=== PATIENT | male | born 1960 | race Caucasian/White ===

== ENCOUNTER 2019-04-20 09:27 | Observation (INO) | payer MEDICARE, MEDICAID ==
--- OUTSIDE RECORDS SUMMARY | 2019-04-20 09:43 | XMS REPORT | Continuity of Care Document ---
:1960 External Reference #:[id number] Author Name Jose Cruz Hernandez DO, MPH Address [address] [place] [address], [address] [place] [address] Care Team Providers Name Role Phone Pavithra Galvin M.D. 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 Medicine Problems Active Problems Provider Date Type 2 diabetes mellitus Jose Cruz Hernandez DO, MPH Onset: 10/18/2014 Social History Type Date Description Comments Sex Unknown Cigarette Use Former Cigarette Smoker 3 Packs Daily ETOH Use Rarely consumes alcohol Tobacco Use Start: Unknown End: Unknown Patient is a former smoker Smoking Status Reviewed: 03/02/19 Patient is a former smoker Allergies, Adverse Reactions, Alerts Active Allergies Reaction Severity Comments Date Penicillin 10/18/2014 Benadryl 10/18/2014 Contrast Dye 10/18/2014 Adhesives 10/18/2014 Ultram 10/18/2014 Keflex 10/18/2014 Amoxicillin 10/18/2014 Ampicillin 10/18/2014 Flexeril 10/18/2014 Medications Active Medications SIG Qnty Indications Ordering Date Provider Dilaudid si every 6 to 120tabs Jose Cruz Hernandez, 03/05/2018 2mg Tablets 8 hours as DO, MPH directed chronic pain patient Morphine Sulfate ER si by mouth 60tabs Jose Cruz Hernandez, 10/27/2014 15mg every 12 hours DO, MPH Tablets ER as directed chronic pain patient Anoro Ellipta Unknown 62.5-25mcg/Inh Aerosol Spiriva Respimat 2 puffs daily Unknown 2.5mcg/Act Aerosol Coq10 Unknown 200mg Capsules Alpha Lipoic Acid take one capsule Unknown 200mg by mouth every 8 Capsules hours as directed chronic pain. Rosuvastatin Calcium qhs Unknown 5mg Tablets Spironolactone 1 By Mouth Daily Unknown 25mg Tablets Magnesium Oxide 1 by mouth three Unknown 400(240Mg) times a day mg Tablets Levocetirizine sig: take 1 by Unknown Dihydrochloride mouth daily 5mg Tablets Ibuprofen si by mouth Unknown 600mg Tablets twice a day Ramipril si po qhs Unknown 2.5mg Capsules Repatha every 2 weeks Unknown 140mg/ml Soln Prefill Syringe Toprol XL 2 PO qam And1 PO 90tabs Unknown 50mg Tablets ER PM 24HR Repaglinide tid Unknown 2mg Tablets Plavix 1 by mouth at Unknown 75mg Tablets night Norvasc 1 by mouth bid Unknown 5mg Tablets Nitrostat prn Unknown 0.4mg Tablets Sub Furosemide 1 by mouth daily Unknown 40mg Tablets Lantus Solostar 80 units in the Unknown 60Units morning Solution Pen-Inject Glucophage 1 bid Unknown 1000mg Tablets Flonase Allergy Relief Unknown 50mcg/Act Suspension Daily Vitamin 1 by mouth every Unknown Tablets day Carbamazepine ER 1 po tid Unknown 400mg Tablets ER 12HR Aspirin si by mouth Unknown 325mg Tablets every day as directed pooja test test only Doxylamine Succinate 1 po qhs Unknown 25mg Albuterol Inhalation two puffs by Unknown mouth every 4-6 90mcg/Dose Aerosol hours for shortness of breath Immunizations Description No Information Available Vital Signs Date Vital Result Comment 03/02/2019 9:47am BP Systolic 142 mmHg BP Diastolic 86 mmHg Heart Rate 84 /min Respiratory Rate 20 /min Height 70 inches 5'10" Weight 262.00 lb Pain Level 7 Pain at this time. Pain Level With Medicine 6 on average with meds Pain Level Without Medicine 9 without meds BMI (Body Mass Index) 37.6 kg/m2 01/31/2019 9:53am Respiratory Rate 20 /min Height 70 inches 5'10" Weight 262.00 lb Pain Level 7 Pain at this time. Pain Level With Medicine 6 on average with meds Pain Level Without Medicine 9 without meds BMI (Body Mass Index) 37.6 kg/m2 Results Description No Information Available Procedures Date Code Description Status 01/31/2019 70967 Therapeutic, Prophylactic Or Diagnostic Injection Subq/Im Completed 12/31/2018 74186 Therapeutic, Prophylactic Or Diagnostic Injection Subq/Im Completed 12/01/2018 05854 Therapeutic, Prophylactic Or Diagnostic Injection Subq/Im Completed 11/01/2018 51971 Therapeutic, Prophylactic Or Diagnostic Injection Subq/Im Completed 09/30/2018 53135 Therapeutic, Prophylactic Or Diagnostic Injection Subq/Im Completed 09/02/2018 50865 Therapeutic, Prophylactic Or Diagnostic Injection Subq/Im Completed Medical Devices Description No Information Available Encounters Type Date Location Provider Dx Diagnosis Office Visit 01/31/2019 Main Office as Of Jose Cruz Hernandez DO G89.29 Other chronic pain 10:00a 06/18/13 MPH M54.5 Low back pain 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, cervical region Z79.4 residential (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 R53.83 Other fatigue 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 Office Visit 12/31/2018 9:30a Main Office as Jose Cruz Hernandez G89.29 Other chronic Of 06/18/13 DO, MPH pain 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, cervical region M54.5 Low back pain R53.83 Other fatigue Z79.4 residential (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 Office Visit 12/01/2018 9:45a Main Office as Jose Cruz Hernandez G89.29 Other chronic Of 06/18/13 DO, MPH pain M54.5 Low back pain 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, cervical region R53.83 Other fatigue 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 Office Visit 11/01/2018 9:30a Main Office as Jose Cruz Hernandez G89.29 Other chronic Of 06/18/13 DO, MPH pain 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, cervical region M54.5 Low back pain I51.9 Heart disease, unspecified I10 Essential (primary) hypertension E11.8 Type 2 diabetes mellitus with unspecified complications Z79.4 residential (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 G40.89 Other seizures R53.83 Other fatigue 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 Office Visit 09/30/2018 10:30a Main Office as Hernandez, Jose Cruz, G89.29 Other chronic Of 06/18/13 DO, MPH pain M54.5 Low back pain 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, cervical region R53.83 Other fatigue Z79.891 residential (current) use of opiate analgesic Office Visit 09/02/2018 9:30a Main Office as Hernandez, Jose Cruz, G89.29 Other chronic Of 06/18/13 DO, MPH pain M54.5 Low back pain 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, 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 R53.83 Other fatigue 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 Assessments Date Code Description Provider 03/02/2019 G89.29 Other chronic pain Hernandez, Jose Cruz, DO, MPH 03/02/2019 M54.5 Low back pain Hernandez, Jose Cruz, DO, MPH 03/02/2019 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, cervical region Hernandez, Jose Cruz, DO, MPH 03/02/2019 R53.83 Other fatigue Hernandez, Jose Cruz, DO, MPH 03/02/2019 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 Hernandez, Jose Cruz, DO , MPH nervous system 03/02/2019 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 Hernandez, Jose Cruz , DO, MPH 01/31/2019 G89.29 Other chronic pain Hernandez, Jose Cruz, DO, MPH 01/31/2019 M54.5 Low back pain Hernandez, Jose Cruz, DO, MPH 01/31/2019 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, cervical region Hernandez, Jose Cruz, DO, MPH 01/31/2019 Z79.4 equipment 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 (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 Hernandez, Jose Cruz, DO, MPH 01/31/2019 R53.83 Other fatigue Hernandez, Jose Cruz, DO, MPH 01/31/2019 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 Hernandez, Jose Cruz , DO, MPH 12/31/2018 G89.29 Other chronic pain Hernandez, Jose Cruz, DO, MPH 12/31/2018 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, cervical region Hernandez, Jose Cruz, DO, MPH 12/31/2018 M54.5 Low back pain Hernandez, Jose Cruz, DO, MPH 12/31/2018 R53.83 Other fatigue Hernandez, Jose Cruz, DO, MPH 12/31/2018 Z79.4 residential (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 Hernandez, Jose Cruz, DO, MPH 12/01/2018 G89.29 Other chronic pain Hernandez, Jose Cruz, DO, MPH 12/01/2018 M54.5 Low back pain Hernandez, Jose Cruz, DO, MPH 12/01/2018 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, cervical region Hernandez, Jose Cruz, DO, MPH 12/01/2018 R53.83 Other fatigue Hernandez, Jose Cruz, DO, MPH 12/01/2018 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 Hernandez, Jose Cruz , DO, MPH 11/01/2018 G89.29 Other chronic pain Hernandez, Jose Cruz, DO, MPH 11/01/2018 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, cervical region Hernandez, Jose Cruz, DO, MPH 11/01/2018 M54.5 Low back pain Hernandez, Jose Cruz, DO, MPH 11/01/2018 I51.9 Heart disease, unspecified Hernandez, Jose Cruz, DO, MPH 11/01/2018 I10 Essential (primary) hypertension Hernandez, Jose Cruz, DO, MPH 11/01/2018 E11.8 Type 2 diabetes mellitus with unspecified Hernandez, Jose Cruz, DO , MPH complications 11/01/2018 Z79.4 residential (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 Hernandez, Jose Cruz, DO, MPH 11/01/2018 G40.89 Other seizures Hernandez, Jose Cruz, DO, MPH 11/01/2018 R53.83 Other fatigue Hernandez, Jose Cruz, DO, MPH 11/01/2018 Z79.891 residential (current) use of opiate analgesic Hernandez, Jose Cruz , DO, MPH 09/30/2018 G89.29 Other chronic pain Hernandez, Jose Cruz, DO, MPH 09/30/2018 M54.5 Low back pain Hernandez, Jose Cruz, DO, MPH 09/30/2018 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, cervical region Jose Cruz Hernandez DO, MPH 09/30/2018 R53.83 Other fatigue Jose Cruz Hernandez DO, MPH 09/30/2018 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 Jose Cruz Hernandez DO, MPH 09/02/2018 G89.29 Other chronic pain Jose Cruz Hernandez DO, MPH 09/02/2018 M54.5 Low back pain Jose Cruz Hrenandez DO, MPH 09/02/2018 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 Symptoms and complaints discussed and reviewed today. No significant changes in physical findings. Continue current medical pain management.M54.5 Low back painComments:Chronic. Symptoms and complaints discussed and reviewed today.No changes in physical findings. Patient is stable and comfortable when current medical therapy is rendered.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 , cervical regionComments:Chronic. Symptoms and complaints discussed and reviewed today. No significant changes in physical findings. Continue current medical pain management.R53.83 Other fatigueComments:Symptoms and complaints discussed and reviewed today. No significant changes in physical findings. Continue current medical pain management. B12 injection administered after patient evaluated. 1ml IM for fatigue. (See Consent for injection-B12 document for lot number and expiration date.)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 nervous systemNew Orders:Sudomotor Test, Ordered: 03/02/19Comments: Sudomotor testing ordered to determine the effect, if any, of chronic illness and pain on small nerve fibers and/or autonomic nervous system function. Future testing will help to monitor the effects ofchronic illness,pain and subsequent treatments on the autonomic nervous system. If proper diagnosis and monitoring of ANS and/or small pain fiber problems is not appropriately addressed, adequate pain management may not be achieved.Z79.891 residential (current) use of opiate analgesicNew Labs:Urine Drug Screen, Ordered: 03/02/19Comments:Urine drug screen sample taken today to monitor opiate use and to monitor use of illicit substances.Will discuss results at next appointment.The following tests were ordered:6 AM, AMPH, ISAEL, DAWIT, BUP, CARIS, COCM, COT, ETG, FENT, MCSHSG, OPI, OXY, PCP, TAPEN, XTSY, ZOLP. A urine drug test (UDT) was ordered for this patient and collected on site today. Creatinine has been ordered as well for specimen validity, not for kidney function. Preliminary UDT results are not final and should not be used to determine patient care or plan of treatment. Initially a qualitative immunoassay screen will be done. Any inconsistent or positive findings will be further tested with a more comprehensive quantitative confirmation LCMS study. It is part of the treatment process of prescribing controlled substances and is considered standard of care.AllComments:Continue current medical pain management; injection therapy, osteopathic manipulation, PT / modalities, and consults as needed to manage chronic pain.Non - opioid pain management discussed and optionsdiscussed.Side effects discussed; anticipatory guidance given. Patient clearly understand and agree with all medical treatments and suggestions. All medicines prescribed are adequate and appropriate for this patient's complaint of pain, medical history, physical, and personal goals.Goals of Treatment are to provide adequate and appropriate multidisciplinary medical pain management to increase/ maintain patient's quality of life and functionality while maintaining satisfactory side effect profile andminimizing fpc end-organ damage. Importance of regular nutrition throughout the day discussed.Activity as toleratedContinue with PCP Functional Status Description No Information Available Mental Status Description No Information Available Referrals Description No Information Available
--- OUTSIDE RECORDS SUMMARY | 2019-04-20 09:43 | XMS REPORT | Continuity of Care Document ---
:1960 External Reference #:[id number] Author Name Jose Cruz Hernandez DO, MPH Address [address] [place] [address], [address] [place] [address] Care Team Providers Name Role Phone Pavithra Galvin M.D. - Internal Care Team Information T[employer] [phone] Medicine Problems Active Problems Provider Date Type 2 diabetes mellitus Jose Cruz Hernandez DO, MPH Onset: 10/18/2014 Social History Type Date Description Comments Sex Unknown Cigarette Use Former Cigarette Smoker 3 Packs Daily ETOH Use Rarely consumes alcohol Tobacco Use Start: Unknown End: Unknown Patient is a former smoker Smoking Status Reviewed: 04/01/19 Patient is a former smoker Allergies, Adverse [...] Available Vital Signs Date Vital Result Comment 04/01/2019 9:49am BP Systolic 140 mmHg BP Diastolic 84 mmHg Heart Rate 88 /min Respiratory Rate 20 /min Height 70 inches 5'10" Weight 260.00 lb Pain Level 6 Pain at this time. Pain Level With Medicine 6 on average with meds Pain Level Without Medicine 9 without meds BMI (Body Mass Index) 37.3 kg/m2 03/02/2019 9:47am BP Systolic 142 mmHg BP [...] Information Available Procedures Date Code Description Status 03/02/2019 90523 Therapeutic, Prophylactic Or Diagnostic Injection Subq/Im Completed 03/02/2019 14288 Test Autonomic Nervous System, Sudomotor Completed 03/02/2019 36714 Test Autonomic Nervous System, Cardiovagal Innervation Completed 01/31/2019 75811 Therapeutic, Prophylactic Or Diagnostic Injection Subq/Im Completed 12/31/2018 76217 Therapeutic, Prophylactic Or Diagnostic Injection Subq/Im Completed 12/01/2018 90663 Therapeutic, Prophylactic Or Diagnostic Injection Subq/Im Completed 11/01/2018 64453 Therapeutic, Prophylactic Or Diagnostic Injection Subq/Im Completed Medical Devices Description No Information Available Encounters Type Date Location Provider Dx Diagnosis Office Visit 03/02/2019 Main Office as Of Jose Cruz Hernandez DO G89.29 Other chronic pain 10:00a 06/18/13 MPH M54.5 Low back pain 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, cervical region R53.83 Other fatigue 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 nervous system 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 Office Visit 01/31/2019 10:00a Main Office as Jose Cruz Hernandez G89.29 Other chronic Of 06/18/13 DO, MPH pain M54.5 Low back pain 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, cervical region Z79.4 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 R53.83 Other fatigue 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 Office Visit 12/31/2018 9:30a Main Office as Jose Cruz Hernandez G89.29 Other chronic Of 06/18/13 DO, MPH pain 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, cervical region M54.5 Low back pain R53.83 Other fatigue Z79.4 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 Office Visit 12/01/2018 9:45a Main Office as Jose Cruz Hernandez G89.29 Other chronic Of 06/18/13 DO, MPH pain M54.5 Low back pain 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, cervical region R53.83 Other fatigue Z79.891 [facility] (current) use of opiate analgesic Office Visit 11/01/2018 9:30a Main Office as HernandezJose Cruz lee, G89.29 Other chronic Of 06/18/13 DO, MPH pain 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, cervical region M54.5 Low back pain I51.9 Heart disease, unspecified I10 Essential (primary) hypertension E11.8 Type 2 diabetes mellitus with unspecified complications Z79.4 [facility] (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 G40.89 Other seizures R53.83 Other fatigue Z79.891 [facility] (current) use of opiate analgesic Assessments Date Code Description Provider 04/01/2019 G89.29 Other chronic pain Hernandez, Jose Cruz, DO, MPH 04/01/2019 M54.5 Low back pain Hernandez, Jose Cruz, DO, MPH 04/01/2019 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, cervical region Hernandez, Jose Cruz, DO, MPH 04/01/2019 R53.83 Other fatigue Hernandez, Jose Cruz, DO, MPH 04/01/2019 Z79.891 [facility] (current) use of opiate analgesic Hernandez, Jose Cruz , DO, MPH 04/01/2019 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 Hernandez, Jose Cruz, DO , MPH nervous system 03/02/2019 G89.29 Other chronic pain Hernandez, Jose Cruz, DO, MPH 03/02/2019 M54.5 Low back pain Hernandez, Jose Cruz, DO, MPH 03/02/2019 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, cervical region Hernandez, Jose Cruz, DO, MPH 03/02/2019 R53.83 Other fatigue Hernandez, Jose Cruz, DO, MPH 03/02/2019 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 Hernandez, Jose Cruz, DO , MPH nervous system 03/02/2019 Z79.891 [facility] (current) use of opiate analgesic Hernandez, Jose Cruz , DO, MPH 01/31/2019 G89.29 Other chronic pain Hernandez, Jose Cruz, DO, MPH 01/31/2019 M54.5 Low back pain Hernandez, Jose Cruz, DO, MPH 01/31/2019 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, cervical region Hernandez, Jose Cruz, DO, MPH 01/31/2019 Z79.4 [facility] (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 Hernandez, Jose Cruz, DO, MPH 01/31/2019 R53.83 Other fatigue Hernandez, Jose Cruz, DO, MPH 01/31/2019 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 Hernandez, Jose Cruz , DO, MPH 12/31/2018 G89.29 Other chronic pain Hernandez, Jose Cruz, DO, MPH 12/31/2018 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, cervical region Hernandez, Jose Cruz, DO, MPH 12/31/2018 M54.5 Low back pain Hernandez, Jose Cruz, DO, MPH 12/31/2018 R53.83 Other fatigue Hernandez, Jose Cruz, DO, MPH 12/31/2018 Z79.4 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 Hernandez, Jose Cruz, DO, MPH 12/01/2018 G89.29 Other chronic pain Hernandez, Jose Cruz, DO, MPH 12/01/2018 M54.5 Low back pain Hernandez, Jose Cruz, DO, MPH 12/01/2018 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, cervical region Hernandez, Jose Cruz, DO, MPH 12/01/2018 R53.83 Other fatigue Hernandez, Jose Cruz, DO, MPH 12/01/2018 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 Hernandez, Jose [...] Cruz, DO , MPH complications 11/01/2018 Z79.4 [facility] (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 Hernandez, Jose Cruz, DO, MPH 11/01/2018 G40.89 Other seizures Jose Cruz Hernandez DO MPH 11/01/2018 R53.83 Other fatigue Jose Cruz Hernandez DO MPH 11/01/2018 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 Jose Cruz Hernandez DO MPH Plan of Treatment Future Appointment(s):05/02/2019 9:45 am - Jose Cruz Hernandez DO, MPH at Main Office as Of 06/18/1410 - Jose Cruz Hernandez DO, MPHG89.29 Other [...] injection-B12 document for lot number and expiration date.)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New Labs:Urine Drug Screen, Ordered: 04/01/19Comments:Urine drug screen sample taken today to monitor opiate use and to monitor use of illicit substances.Will discuss results at next appointment.The following tests were ordered:6 AM, AMPH, ISAEL, DAWIT, BUP, CARIS, COCM, ETG, FENT, MCSHSG, OPI, OXY, PCP, TAPEN, XTSY, ZOLP. A urine drug test (UDT) was ordered for this patient and collected on site today. Creatinine has been ordered as well for specimen validity, not for kidney function. Preliminary UDT results are not final and should not be used to determine patient care or plan of treatment. Initially a qualitative immunoassay screen will bedone. Any inconsistent or positive findings will be further tested with a more comprehensive quantitative confirmation LCMS study. It is part of the treatment process of prescribing controlled substances and is considered standard of care.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 nervous systemComments:Sudomotor test report reviewed with the patient today. The test was Positive for possible autonomic dysfunction at this time. Will follow effects of pain and current medical treatment. Future testing will help to monitor the effects of chronic illness, pain and subsequent treatment on the autonomic nervous system. May retest in 3- 6 monthsAlpha lipoic acid 100 - 200 mg tid. suggested to patient. Thishas been shown to help with the neuropathic component of pain and autonomic dysfunction.AllComments:Continue current medical pain management; injection therapy, osteopathic [...] while maintaining satisfactory side effect profile andminimizing halfway end-organ damage. Importance of regular nutrition throughout the day discussed.Activity as toleratedContinue with PCP Functional Status Description No Information Available Mental Status Description No Information Available Referrals Description No Information Available
--- NOTE | 2019-04-20 10:17 | ED ---
Shortness of Breath - HPI Summary HPI Summary: The patient is a 58 y/o M presenting to [facility] with a chief complaint of shortness of breath for the last week. He reports that he called his PCP Dr. Galvin, and the office told him that if he developed a fever, he should call back. He developed a fever last night, so he called the office and was told to go to urgent care, but he came here. He endorses a productive cough, chest congestion, decreased appetite, and weakness. He denies edema. Currently, he rates his symptoms 3/10 in severity. PMHx: diabetes, angina, CAD, DVT, HLD, HTN , VT, syncope, CABG, COPD, PNA, headache/migraines, seizures, TIA. Former smoker , rare EtOH, no substance use. Medications reviewed. Allergies noted. - History of Current Complaint Chief Complaint: EDShortnessOfBreath Time Seen by Provider: 04/20/19 10:10 Hx Obtained From: Patient Onset/Duration: Lasting Days - one week, Still Present Current Severity: Moderate Dyspnea At: Rest Aggravating Factors: Nothing Alleviating Factors: Nothing Associated Signs & Symptoms: Cough (Productive), Fever - Allergy/Home Medications Allergies/Adverse Reactions: Allergies Allergy/AdvReac Type Severity Reaction Status Date / Time diphenhydramine Allergy Severe Anaphylatic Verified 01/10/19 10:38 Shock Iodinated Contrast Media Allergy Severe Anaphylatic Verified 01/10/19 10:38 [Iodinated Contrast- Oral Shock and IV Dye] Penicillins Allergy Severe Anaphylatic Verified 01/10/19 10:38 Shock cyclobenzaprine Allergy Intermediate Rash Verified 01/10/19 10:38 tramadol Allergy Intermediate Rash Verified 01/10/19 10:38 cephalexin Allergy Unknown Unknown Verified 01/10/19 10:38 Reaction Details Adhesive Tape Allergy Blisters Verified 01/10/19 10:38 Home Medications: Home Medications Albuterol HFA INHALER* [Ventolin HFA Inhaler*] 1 - 2 puff INH Q4H PRN 04/20/19 [ History Confirmed 04/20/19] Budesonide/Formote 80/4.5(NF) [Symbicort 80/4.5 (NF)] 2 puff INH DAILY 04/20/19 [History Confirmed 04/20/19] Ipratropium 0.5MG/2.5ML NEB* [Atrovent 0.5 MG NEB.AGUSTO*] 0.5 mg INH BID PRN 04/20 [History Confirmed 04/20/19] Metoprolol Succinate XL TAB* [Toprol XL TAB*] 25 mg PO QPM 04/20/19 [History Confirmed 04/20/19] PMH/Surg Hx/FS Hx/Imm Hx Endocrine/Hematology History: Reports: Hx Anticoagulant Therapy - plavix, Hx Diabetes - type II insulin dependent Cardiovascular History: Reports: Hx Angina, Hx Coronary Artery Disease, Hx Deep Vein Thrombosis, Hx Hypercholesterolemia, Hx Hypertension, Hx Myocardial Infarction, Hx Syncope Denies: Hx Congestive Heart Failure, Hx Pacemaker/ICD, Hx Valvular Heart Disease Comment Only: Other Cardiovascular Problems/Disorders - ANGIOPLASTIES X 19 Respiratory History: Reports: Hx Chronic Obstructive Pulmonary Disease (COPD), Hx Pneumonia, Hx Seasonal Allergies Denies: Hx Asthma Comment Only: Other Respiratory Problems/Disorders - COPD GI History: Reports: Hx Ulcer, Other GI Disorders Musculoskeletal History: Reports: Hx Arthritis, Hx Back Problems, Other Musculoskeletal History - BACK SURGERIES, hip replacement, c-spine surgery Denies: Hx Rheumatoid Arthritis, Hx Gout, Hx Osteoporosis Sensory History: Reports: Hx Contacts or Glasses Denies: Hx Hearing Aid Opthamlomology History: Reports: Hx Contacts or Glasses Neurological History: Reports: Hx Headaches, Hx Migraine, Hx Nerve Disease, Hx Seizures, Hx Transient Ischemic Attacks (TIA), Other Neuro Impairments/ Disorders - SEIZURES HX R/T PESTICIDE TOXIN Psychiatric History: Denies: Hx Panic Disorder - Surgical History Surgical History: Yes Surgery Procedure, Year, and Place: CABG x 4 Vessels. Anterior neck diskectomy x 2. Septoplasty (Nose opened up to breathe better) 1978. Right Hip replacement approx 10 years ago. (16) ANGIOPLASTIES AND STENTS. Bilateral inguinal hernia repair as a baby. Make Meaningtronic monitor inserted and removed to monitor heart 3 or 4 years ago. Hx Anesthesia Reactions: No - Immunization History Date of Tetanus Vaccine: 11/28 Date of Influenza Vaccine: Fall 2012 Infectious Disease History: No Infectious Disease History: Denies: Hx Clostridium Difficile, Hx Hepatitis, Hx Human Immunodeficiency Virus (HIV), Hx of Known/Suspected MRSA, Hx Shingles, Hx Tuberculosis, History Other Infectious Disease, Traveled Outside the [place] in Last 30 Days - Family History Known Family History: Positive: Cardiac Disease - Social History Alcohol Use: Rare Hx Substance Use: No Substance Use Type: Reports: None Hx Tobacco Use: Yes Smoking Status (MU): Former Smoker Type: Cigarettes Amount Used/How Often: 2 packs per day Length of Time of Smoking/Using Tobacco: 20 yrs Have You Smoked in the Last Year: No Review of Systems Positive: Fever Positive: Shortness Of Breath, Cough - productive, Other - chest congestion Positive: Other - decreased appetite Negative: Edema Positive: Weakness All Other Systems Reviewed And Are Negative: Yes Physical Exam - Summary Physical Exam Summary: VITAL SIGNS: Reviewed. GENERAL: Patient is a well-developed and obese male who is lying comfortable in the stretcher. Patient is not in any acute respiratory distress. HEAD AND FACE: No signs of trauma. No ecchymosis, hematomas or skull depressions. No sinus tenderness. EYES: PERRLA, EOMI x 2, No injected conjunctiva, no nystagmus. EARS: Hearing grossly intact. Ear canals and tympanic membranes are within normal limits. MOUTH: Oropharynx within normal limits. NECK: Supple, trachea is midline, no adenopathy, no JVD, no carotid bruit, no c- spine tenderness, neck with full ROM. CHEST: Symmetric, no tenderness at palpation. LUNGS: Bilateral crackles. No wheezing. CVS: Regular rate and rhythm, S1 and S2 present, no murmurs or gallops appreciated. ABDOMEN: Soft, non-tender. No signs of distention. No rebound, no guarding, and no masses palpated. Bowel sounds are normal. EXTREMITIES: FROM in all major joints, no edema, no cyanosis or clubbing. NEURO: Alert and oriented x 3. No acute neurological deficits. Speech is normal and follows commands. SKIN: Dry and warm. Triage Information Reviewed: Yes Vital Signs On Initial Exam: Initial Vitals Temp Pulse Resp BP Pulse Ox 97.6 F 90 18 137/74 94 04/20/19 09:29 04/20/19 09:29 04/20/19 09:29 04/20/19 09:29 04/20/19 09:29 Vital Signs Reviewed: Yes Procedures - Sedation Patient Received Moderate/Deep Sedation with Procedure: No Diagnostics - Vital Signs Vital Signs Temp Pulse Resp BP Pulse Ox 04/20/19 09:29 97.6 F 90 18 137/74 94 - Laboratory Result Diagrams: 04/21/19 05:44 04/21/19 05:44 Lab Statement: Any lab studies that have been ordered have been reviewed, and results considered in the medical decision making process. - Radiology Chest X-Ray Radiology Interpretation Completed By: Radiologist Summary of Radiographic Findings: Impression: Mild mixed alveolar interstitial pulmonary edema suspected. In the correct clinical context, infiltrate can have a similar appearance. ED physician has reviewed this report. - EKG 1151 Cardiac Rate: NL - 60 BPM EKG Rhythm: Sinus Rhythm EKG Comparison: No Significant Change - Similar to previous taken on 01/16/14. Summary of EKG Findings: EKG at 1151 reveals sinus rhythm at 60 BPM. Q wave in III and aVF. T wave inversion in V4 and V5. No ST elevations. ED physician has reviewed and interpreted this EKG. Re-Evaluation - Re-Evaluation First Eval Re-Evaluation Time: 12:10 Comment: We discussed results and plan for admission. Course/Dx - Course Assessment/Plan: This patient is a 50-year-old male who presents to the emergency department with a chief complaint of shortness of breath, productive cough, and fever. Past medical history significant for: Hypertension, myalgias, dyslipidemia, morbid obesity, diabetes, COPD,and CHF. Blood test results: CBC: WBCs 8.8, hemoglobin 13.3, hematocrit 38 and please 187. ABG: PH 7.43, PCO2 34, PO2 72, O2 sat 95.2. CMP within normal limits except for creatinine 1.26, glucose 250, troponin 0.04, BNP 314, BNP 113. Chest x-ray impression: Mild alveolar interstitial pulmonary edema suspected. Infiltrated can have similar appearance. In the ED course, the patient was given IV fluids and Levaquin since I believe that the patient has pneumonia as well as CHF with increased troponin will r/o ACS. I discussed my physical exam and test results with Dr. Arnett from the hospitalist services, and he agrees to admit the patient to his services. The patient is hemodynamically stable alert and oriented x 3. - Diagnoses Differential Diagnosis/HQI/PQRI: Positive: Asthma, Bronchitis, CHF, COPD Exacerbation, VT, Pneumonia Provider Diagnoses: Pneumonia, CHF exacerbation, Elevated troponin - Physician Notifications Discussed Care of Patient With: Brad Arnett - hospitalist Time Discussed With Above Provider: 12:05 Instructed by Provider To: Admit As Observation - I discussed the patient's case with Dr. Arnett, and he accepts the patient for admission. Discharge ED - Sign-Out/Discharge Documenting (check all that apply): Patient Departure - Patient accepted for admission by Dr. Arnett. - Discharge Plan Condition: Stable Disposition: ADMITTED TO [facility] - Billing Disposition and Condition Condition: STABLE Disposition: Admitted to [facility] - Attestation Statements Document Initiated by Pio: Yes Documenting Scribe: Mariposa Moralez Provider For Whom Pio is Documenting (Include Credential): Dr. Luke Sharma MD Scribe Attestation: Mariposa Calle scribed for Dr. Luke Sharma MD on 04/22/19 at 0756. Scribe Documentation Reviewed: Yes Provider Attestation: The documentation as recorded by the Mariposa og accurately reflects the service I personally performed and the decisions made by me, Dr. Luke Sharma MD Status of Scribe Document: Viewed
[2019-04-20 10:38] LABS: ABS Lymphocytes 1.1 10^3/ul (1.0-4.8); ABS Monocytes 0.7 10^3/ul (0-0.8); ABS Neutrophils 6.9 10^3/ul (1.5-7.7); Eosinophil % 0.1 %; Hematocrit 38 % (42-52); Hemoglobin 13.3 g/dL (14.0-18.0); Lymphocyte % 12.6 %; Mean Corpuscular HGB Conc 35 g/dL (31-36); Mean Corpuscular Hemoglobin 36 pg (27-31); Mean Corpuscular Volume 103 fL (80-94); Mean Platelet Volume 7.5 fL (7.4-10.4); Nucleated Red Blood Cells % 0.1; Platelet Count 187 10^3/uL (150-450); Red Blood Count 3.67 10^6 /uL (4.18-5.48); Red Cell Distribution Width 13 % (10-15); White Blood Count 8.8 10^3/uL (3.5-10.8)
[2019-04-20 10:47] LABS: Activated Partial Thrombo Time 32.4 seconds (26.0-38.0); INR 1.26 (0.82-1.09)
[2019-04-20 11:00] LABS: ALT 18 U/L (7-52); AST 17 U/L (13-39); Albumin 3.6 g/dL (3.2-5.2); Albumin/Globulin Ratio 1.1 (1-3); Alkaline Phosphatase 52 U/L (34-104); Anion Gap 10 mmol/L (2-11); BUN/Creatinine Ratio 18.3 (8-20); Blood Urea Nitrogen 23 mg/dL (6-24); C Reactive Protein 319.44 mg/L (<8.01); CO2 Carbon Dioxide 24 mmol/L (22-32); Calcium 8.7 mg/dL (8.6-10.3); Chloride 101 mmol/L (101-111); Creatine Kinase 268 U/L (10-223); EGFR African American 71.1 (>60); EGFR Non-African American 58.8 (>60); Globulin 3.4 g/dL (2-4); Glucose 250 mg/dL (70-100); Potassium 3.7 mmol/L (3.5-5.0); Sodium 135 mmol/L (135-145)
[2019-04-20 11:03] LABS: CKMB ng/mL 1.8 ng/mL (0.6-6.3); Troponin I 0.04 ng/mL (<0.03)
[2019-04-20] MEDS ORDERED: Levofloxacin 750 MG IVPREMIX(* 750 MG/150 ML BAG IVPB ONE (12:00)
[2019-04-20] MEDS ORDERED: Ipratropium 0.5MG/2.5ML NEB* 0.5 MG/2.5 ML NEB.SOLN INH PRN (14:14)
[2019-04-20] MEDS ORDERED: Albuterol HFA INHALER* 8 gm MDI INH PRN (14:14)
[2019-04-20] MEDS ORDERED: Ondansetron INJ* 2 MG/ML VIAL IV PRN (14:23)
[2019-04-20] MEDS ORDERED: Acetaminophen TAB* 325 MG PO PRN (14:23)
[2019-04-20 15:02] LABS: Urine Appearance Clear; Urine Bilirubin Negative (Negative); Urine Blood Negative (Negative); Urine Color Amber; Urine Glucose Negative (Negative); Urine Ketones Trace (Negative); Urine Nitrite Negative (Negative); Urine Protein 2+(100 mg/dL) (Negative); Urine Specific Gravity 1.029 (1.010-1.030); Urine Urobilinogen Negative (Negative)
[2019-04-20 15:14] LABS: Troponin I 0.04 ng/mL (<0.03)
[2019-04-20 15:16] LABS: Urine Bacteria Absent (Absent); Urine Red Blood Cell Absent (Absent); Urine White Blood Cell Absent (Absent)
[2019-04-20] MEDS: Furosemide TAB* 40 MG PO SCH (16:04)
[2019-04-20] MEDS: HYDROmorphone TAB* 2 MG PO PRN ×2 (16:04→20:33)
[2019-04-20] MEDS: Enoxaparin(*) 40 MG/0.4 ML SYR SUBCUT SCH (16:04)
[2019-04-20] MEDS: metFORMIN* 500 MG TAB PO SCH (16:20)
[2019-04-20 16:49] LABS: Influenza A Molecular NEGATIVE (Negative); Influenza B Molecular NEGATIVE (Negative)
--- NOTE | 2019-04-20 17:17 | HP ---
"CC: Dr. Galvin; Dr. Eisenberg * ADMISSION HISTORY AND PHYSICAL: DATE OF ADMISSION: 04/20/19 PRIMARY CARE PROVIDER: Dr. Galvin. GAS PIPE LAYER: Dr. Eisenberg. HEALTHCARE PROXY: His girlfriend, Sourav. CODE STATUS: Full. SOURCE OF INFORMATION: History obtained from interview with the patient and his girlfriend as well as review of past medical records from [facility] and e|tab. RELIABILITY: Good. CHIEF COMPLAINT: Shortness of breath and fever. HISTORY OF PRESENT ILLNESS: This is a 58-year-old man with past medical history of CAD, status post 4-vessel CABG; chronic hypoxic respiratory failure, on 2 L oxygen only at night; obstructive sleep apnea and asthma, although his chart does carry the diagnosis of COPD, please see Dr. Holloway's last PFTs, did not find a restrictive deficit supporting COPD, who had been feeling his self until approximately the day before Thanksgiving 1 week prior to presentation, started noticing increased congestion without cough, but associated increased fatigue and rhinorrhea, no sore throat; however, 2-3 days prior to presentation , he developed fever to 101.7, that resolved without medications. He has additionally felt achy with chills and developed cough associated with rhinorrhea and sore throat. For the last 1 to 2 days prior to presentation, he has had increasing shortness of breath with exertion and at rest, but without chest pain. Previously, he walked his dog several times a day, however, shortness breath is limiting him, so he had difficulty walking to the bathroom. He has a pulse oximeter at home, measured his oxygen to be 85%, did not apply extra oxygen because he had been told not to increase his oxygen delivery at home. He denied any lower extremity edema, orthopnea, or paroxysmal nocturnal dyspnea. He does not weigh himself daily, but does deny any changes in medications or increase in salt intake. In addition, he indicates he is fastidious in maintaining a low-salt diet. Of note, the patient's girlfriend was present, was recently ill with a similar viral illness with flulike symptoms. PAST MEDICAL AND SURGICAL HISTORY: Includes hypertension; insulin-dependent diabetes mellitus; asthma; hyperlipidemia; SAYRA, uses BiPAP; chronic pain, hip, back and neck; chronic narcotics; CAD, status post multiple PCIs and a 4-vessel CABG; seizure disorder, last seizure was 8 years prior; TIA; PFO; right hip replacement; cervical discectomy; hernia repair; septoplasty. HOME MEDICATIONS: The patient brought list and was reviewed: 1. Metoprolol succinate XL 75 mg in the evening. 2. Albuterol twice daily. 3. Metoprolol succinate 50 mg in the morning. 4. Symbicort 80/4.5 two puffs daily. 5. Rosuvastatin 2.5 mg Thursday and . 6. Repaglinide 4 mg 3 times a day. 7. Clopidogrel 75 mg daily. 8. Praluent 75 mg subcutaneously twice a month. 9. Amlodipine 5 mg twice daily. 10. Nitroglycerin sublingual. 11. Morphine XR 15 mg twice daily. 12. Magnesium citrate 325 mg at bedtime. 13. Levocetirizine 5 mg daily. 14. Lasix 40 mg Thursday, Thursday, and Thursday. 15. Isosorbide mononitrate 90 mg daily. 16. Metformin 1000 mg twice daily. 17. Hydromorphone 2 mg 4 times a day. 18. Fluticasone 2 sprays both nares twice daily. 19. CoQ10 400 mg daily. 20. Multivitamin 1 tab daily. 21. Doxylamine succinate 25 mg at bedtime as needed for insomnia. 22. Carbamazepine ER 400 mg 3 times daily. 23. Insulin glargine 55 units daily. 24. Aspirin 325 mg daily. 25. Ramipril 5 mg in the evening. 26. Albuterol 1 to 2 puffs 4 times a day as needed. 27. Ipratropium twice daily as needed. ALLERGIES: BENADRYL, IODINATED CONTRAST, PENICILLIN, CYCLOBENZAPRINE, TRAMADOL , CEPHALEXIN, and ADHESIVE TAPE. FAMILY HISTORY: Mother with type 2 diabetes, colon cancer. Father with an VT. SOCIAL HISTORY: Quit tobacco 5 years prior, previously smoked 2 packs per day for approximately 30 years. No alcohol. He is disabled. REVIEW OF SYSTEMS: As per HPI, otherwise all other systems negative including negative for chest pressure or discomfort. PHYSICAL EXAMINATION GENERAL: Sitting up in bed, interactive, pleasant, in no apparent distress. VITAL SIGNS: When seen by this author 112/60, heart rate is 63, respiratory rate is 20, he is 93% on room air, T-max in the emergency room 97.6. HEENT: Oropharynx has mild erythema. Posterior pharynx has moist mucous membranes. Sclerae anicteric. He has a mobile right submandibular lymph node, which is chronic and has previously been biopsied, otherwise no other cervical or supraclavicular lymphadenopathy. LUNGS: His lungs have bilateral rhonchi from the bases, approximately half way bilaterally. HEART: Regular rate and rhythm. No murmurs, rubs or gallops. ABDOMEN: His abdomen is soft, nontender and nondistended. EXTREMITIES: Warm and well perfused without clubbing, cyanosis or edema. NEUROLOGIC: He is alert and oriented x3. His cranial nerves II through XII are intact. PSYCH: He has no apparent anxiety, agitation, or depression. PERTINENT LABS: Troponin I 0.04, CRP is 319, creatinine is 1.26. His arterial blood gas; pH was 7.4, pO2 of 72, and pCO2 of 34. White blood cell count 8.8, hemoglobin 13.3, platelets 187. PERTINENT DATA: X-ray: Mixed alveolar interstitial pulmonary edema, although _ infiltrate can have a similar appearance. EKG: Normal sinus rhythm, normal limit axis, good R-wave progression, submillimeter ST depressions in V5 and V6, 1-mm ST depression in V4. ASSESSMENT AND PLAN: This is a 58-year-old man with past medical history of coronary artery disease, congestive heart failure, presenting with hypoxic respiratory failure. 1. Hypoxic respiratory failure. Suspect viral illness in the setting of recent sick contacts, suspect viral pneumonia, etiology, however, cannot rule out bacterial pneumonia in the setting of chest x-ray so as elevated C-reactive protein and clinical symptoms and physical exam findings. Received Levaquin in the emergency room, we will continue tomorrow. Hold on steroids. Certainly mild decompensated heart failure may be contributing to his presentation, although he has no paroxysmal nocturnal dyspnea, no orthopnea, no lower extremity edema. We will place him on strict Is and Os, daily weights, volume restrict to 1500 cc per day. We will not give the patient additional Lasix at this time. Given his decreased GFR as well as lower than usual blood pressure, however, attention to ability to deliver additional diuresis tomorrow should be made. Doubt chronic obstructive pulmonary disease contributing given recent pulmonary function tests that are present on Med[facility]. 2. Type 2 diabetes. Continue home Lantus, metformin, repaglinide with fingerstick checks a.c. and h.s. 3. Hypertension. Holding Norvasc and ramipril, lower blood pressure in the emergency room, restart tomorrow as capable. 4. Obstructive sleep apnea. Continue home BiPAP. The patient does not know his home values, I placed around 10/5, he is adamant that he is on BiPAP and not CPAP. 5. Pneumonia. In addition to the above for hypoxic respiratory failure, I suspect bacterial or viral pneumonia as predominant etiology, we will check strep pneumo and urine Legionella antigens. Continue Levaquin and check for influenza. 6. Elevated troponin. Suspect demand in the absence of chest pain as well as constellation of symptoms. Repeat troponin. 7. Acute kidney injury. Holding additional Lasix now, repeat test tomorrow. 8. DVT prophylaxis. Lovenox. [id number]/CPS #: [id number] MTDD"
[2019-04-20] MEDS: Metoprolol Succinate XL TAB* 25 MG PO SCH (17:50)
[2019-04-20] MEDS ORDERED: DOXYLAMINE SUCCINATE 25 MG PO PRN (18:00)
[2019-04-20] MEDS: Fluticasone NASAL SPRAY 50MCG* 16 gm SPRAY BTL BOTH NARES SCH (20:13)
[2019-04-20] MEDS: carBAMazepine TAB(*) 200 MG PO SCH (20:14)
[2019-04-20] MEDS: Morphine TAB Extended Release (*) 15 MG TAB.ER PO SCH (20:14)
[2019-04-20] MEDS: Clopidogrel TAB* 75 MG PO SCH (20:15)
[2019-04-20] MEDS: Repaglinide TAB* 1 MG PO SCH (20:17)
[2019-04-20] MEDS ORDERED: Zolpidem TAB* 5 MG PO ONE (20:17)
[2019-04-20] MEDS: Mometasone/Formoter 200/5 MDI INH SCH (20:46)
[2019-04-21] MEDS: HYDROmorphone TAB* 2 MG PO PRN ×3 (02:57→17:15)
[2019-04-21 06:10] LABS: ABS Eosinophils 0.2 10^3/ul (0-0.6); ABS Lymphocytes 1.7 10^3/ul (1.0-4.8); ABS Monocytes 0.8 10^3/ul (0-0.8); ABS Neutrophils 6.4 10^3/ul (1.5-7.7); Eosinophil % 1.8 %; Hematocrit 37 % (42-52); Hemoglobin 13.4 g/dL (14.0-18.0); Lymphocyte % 18.4 %; Mean Corpuscular HGB Conc 37 g/dL (31-36); Mean Corpuscular Hemoglobin 37 pg (27-31); Mean Corpuscular Volume 102 fL (80-94); Mean Platelet Volume 7.7 fL (7.4-10.4); Platelet Count 190 10^3/uL (150-450); Red Blood Count 3.61 10^6 /uL (4.18-5.48); Red Cell Distribution Width 13 % (10-15)
[2019-04-21 06:39] LABS: BUN/Creatinine Ratio 20.7 (8-20); Calcium 8.6 mg/dL (8.6-10.3); EGFR African American 82.3 (>60); Magnesium 1.7 mg/dL (1.9-2.7); Potassium 3.6 mmol/L (3.5-5.0)
[2019-04-21] MEDS: metFORMIN* 500 MG TAB PO SCH ×2 (07:59→17:14)
[2019-04-21] MEDS: Morphine TAB Extended Release (*) 15 MG TAB.ER PO SCH ×2 (08:00→20:52)
[2019-04-21] MEDS: carBAMazepine TAB(*) 200 MG PO SCH ×3 (08:00→20:51)
[2019-04-21] MEDS: Cetirizine* 10 MG TAB PO SCH (08:00)
[2019-04-21] MEDS: Insulin GLARGINE(*) 1 UNITS UNIT SUBCUT SCH (08:01)
[2019-04-21] MEDS: Metoprolol Succinate XL TAB* 50 MG PO SCH (08:01)
[2019-04-21] MEDS: Aspirin EC TAB* 325 MG PO SCH (08:01)
[2019-04-21] MEDS: Repaglinide TAB* 1 MG PO SCH ×3 (08:01→20:54)
[2019-04-21] MEDS: Fluticasone NASAL SPRAY 50MCG* 16 gm SPRAY BTL BOTH NARES SCH ×2 (08:02→21:46)
[2019-04-21] MEDS: COENZYME Q10 100 MG PO SCH (08:03)
[2019-04-21] MEDS ORDERED: Influenza VAC *QUAD* 2019-20* 0.5 ML SYRINGE IM ONE (09:00)
[2019-04-21] MEDS ORDERED: [UNRECOGNIZED DRUG - OTHER] IM ONE (09:00)
[2019-04-21] MEDS: Mometasone/Formoter 200/5 MDI INH SCH ×2 (09:27→19:38)
[2019-04-21] MEDS ORDERED: Levofloxacin 750 MG IVPREMIX(* 750 MG/150 ML BAG IVPB SCH (12:00)
[2019-04-21] MEDS: Enoxaparin(*) 40 MG/0.4 ML SYR SUBCUT SCH (14:24)
--- NOTE | 2019-04-21 15:58 | PN ---
Subjective Date of Service: 04/21/19 Interval History: Patient feels breathing is better. Still winded with exertion, and very fatigued. Admitted yesterday w/ pneumonia, possible CHF. Reports echo [address] Eisenberg, low EF. States he is bloated, constipated, takes MgCitrate in evening. Family History: Unchanged from Admission Social History: Unchanged from Admission Past Medical History: Unchanged from Admission Objective Active Medications: Acetaminophen (Tylenol Tab*) 650 mg PO Q4H PRN PRN Reason: MILD PAIN or TEMP > 100.4 Albuterol (Ventolin Hfa Inhaler*) 1 puff INH Q4H PRN PRN Reason: SOB/WHEEZING Aspirin (Ecotrin Ec Tab*) 325 mg PO DAILY [facility] Last Admin: 04/21/19 08:01 Dose: 325 mg Atorvastatin Calcium (Lipitor*) 5 mg PO MoTh@2100 [facility]; Protocol Carbamazepine (Tegretol Tab(*)) 400 mg PO TID [facility] Last Admin: 04/21/19 14:24 Dose: 400 mg Cetirizine HCl (Zyrtec*) 10 mg PO DAILY [facility] Last Admin: 04/21/19 08:00 Dose: 10 mg Clopidogrel Bisulfate (Plavix Tab*) 75 mg PO BEDTIME [facility] Last Admin: 04/20/19 20:15 Dose: 75 mg Coenzyme Q10 (Coenzyme Q10 (Nf)) 4 cap PO DAILY [facility] Last Admin: 04/21/19 08:03 Dose: Not Given Enoxaparin Sodium (Lovenox(*)) 40 mg SUBCUT Q24H [facility] Last Admin: 04/21/19 14:24 Dose: 40 mg Fluticasone Propionate (Flonase Nasal [place] 50mcg*) 2 spray BOTH NARES BID [facility] Last Admin: 04/21/19 08:02 Dose: 2 spray Furosemide (Lasix Tab*) 40 mg PO MoWeFr@0900 [facility] Last Admin: 04/20/19 16:04 Dose: 40 mg Hydromorphone HCl (Dilaudid Tab*) 2 mg PO QID PRN PRN Reason: PAIN - SEVERE Last Admin: 04/21/19 12:07 Dose: 2 mg Levofloxacin/Dextrose (Levaquin 750 Mg Ivpremix(*)) 750 mg in 150 mls @ 100 mls /hr IVPB Q24H [facility]; Protocol Last Admin: 04/21/19 14:24 Dose: 100 mls/hr Insulin Glargine (Lantus(*)) 65 units SUBCUT DAILY [facility] Last Admin: 04/21/19 08:01 Dose: 65 units Ipratropium Bock (Atrovent 0.5 Mg Neb.Alicja*) 0.5 mg INH BID PRN PRN Reason: SOB/WHEEZING Metformin HCl (Glucophage*) 1,000 mg PO BID WITH MEALS [facility] Last Admin: 04/21/19 07:59 Dose: 1,000 mg Metoprolol Succinate (Toprol Xl Tab*) 25 mg PO QPM [facility] Last Admin: 04/20/19 17:50 Dose: 25 mg Metoprolol Succinate (Toprol Xl Tab*) 50 mg PO QAM [facility] Last Admin: 04/21/19 08:01 Dose: 50 mg Mometasone Furoate/Formoterol Fumar (Dulera 200/5 Mdi*) 2 puff INH BID [facility] Last Admin: 04/21/19 09:27 Dose: 2 puff Morphine Sulfate (Ms Contin(*)) 15 mg PO BID [facility] Last Admin: 04/21/19 08:00 Dose: 15 mg Non-Formulary Medication (Doxylamine Succinate [Unisom Sleep Aid]) 25 mg PO BEDTIME PRN PRN Reason: INSOMNIA Non-Formulary Medication (Magnesium Citrate [Magnesium Citrate]) 325 mg PO BEDTIME [facility] Ondansetron HCl (Zofran Inj*) 4 mg IV Q4H PRN PRN Reason: NAUSEA/VOMITING Repaglinide (Prandin Tab*) 4 mg PO TID [facility] Last Admin: 04/21/19 14:24 Dose: 4 mg Vital Signs - 8 hr 04/21/19 04/21/19 04/21/19 08:00 11:14 11:15 Temperature 36.3 C Pulse Rate 71 Respiratory 18 18 18 Rate Blood Pressure 114/61 (mmHg) O2 Sat by Pulse 94 Oximetry 04/21/19 04/21/19 04/21/19 12:07 15:15 15:31 Temperature 36.2 C Pulse Rate 65 Respiratory 18 22 18 Rate Blood Pressure 127/83 (mmHg) O2 Sat by Pulse 97 Oximetry Oxygen Devices in Use Now: None Appearance: alert, no distress Neck: NL Appearance and Movements; NL JVP Respiratory: Symmetrical Chest Expansion and Respiratory Effort, - - rales at LT base Abdominal: NL Sounds; No Tenderness; No Distention, No Hepatosplenomegaly Lymphatic: No Cervical Adenopathy Neurological: Alert and Oriented x 3 Lines/Tubes/Other Access: Clean, Dry and Intact Peripheral IV Nutrition: Taking PO's Result Diagrams: 04/21/19 05:44 04/21/19 05:44 Additional Lab and Data: Laboratory Tests 04/20/19 04/20/19 04/20/19 10:28 10:29 14:39 Glucose POC Glucose (mg/dL) Troponin I 0.04 H* 0.04 H* B-Natriuretic Peptide 113 H 04/20/19 04/20/19 04/21/19 16:12 20:36 05:44 Glucose 95 POC Glucose (mg/dL) 173 H 141 H Troponin I B-Natriuretic Peptide 04/21/19 07:48 Glucose POC Glucose (mg/dL) 103 H Troponin I B-Natriuretic Peptide Microbiology and Other Data: Microbiology 04/20/19 10:29 Aerobic Blood Culture - Preliminary Blood Venous No Growth Day 1 Anaerobic Blood Culture - Preliminary No Growth Day 1 04/20/19 10:30 Aerobic Blood Culture - Preliminary Blood Venous No Growth Day 1 Anaerobic Blood Culture - Preliminary No Growth Day 1 04/20/19 15:00 Legionella Urinary Antigen - Final Urine Negative Legionella Antigen Streptococcus pneumoniae Ag Screen - Final Negative S. pneumo Antigen Assess/Plan/Problems-Billing Assessment: 58 year old with DM2, asthma, CHF, here with pneumonia vs CHF exacerbation. - Patient Problems (1) Pneumonia Current Visit: Yes Status: Acute Priority: High Code(s): J18.9 - PNEUMONIA , UNSPECIFIED ORGANISM SNOMED Code(s): 457972093 Comment: -Cultures and urine Ag negative so far -Differential includes viral pneumonia -Continue Levaquin (2) Acute on chronic HFrEF (heart failure with reduced ejection fraction) Current Visit: Yes Status: Acute Priority: High Code(s): I50.23 - ACUTE ON CHRONIC SYSTOLIC (CONGESTIVE) HEART FAILURE SNOMED Code(s): 327549275 Comment: -Will look for old echocardiogram and repeat if necessary -Does not appear volume overloaded, will attempt to keep I/O even (3) Type 2 diabetes mellitus Current Visit: Yes Status: Acute Priority: Medium Comment: -Sugars in good range -Continue present Rx (4) Constipation due to pain medication Current Visit: Yes Status: Acute Priority: Medium Code(s): K59.03 - DRUG INDUCED CONSTIPATION SNOMED Code(s): 48507650 Comment: -MgCitrate liquid ordered this evening Status and Disposition: observation, possible discharge tomorrow
[2019-04-21] MEDS ORDERED: Perflutren Lipid Microsphere* 3 ML VIAL ONE (16:14)
[2019-04-21] MEDS: Metoprolol Succinate XL TAB* 25 MG PO SCH (17:14)
--- NOTE | 2019-04-21 17:23 | ECHO ---
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 History: Patent foramen ovale. Risk factors: Hypertension. Diabetes mellitus. Dyslipidemia. Labs, prior tests, procedures, and surgery: Catheterization. There was a stenosis which was treated with a stent. Coronary artery bypass grafting. Conclusions Summary: - Left ventricle: The cavity size is at the upper limits of normal. Wall thickness is mildly increased. Systolic function is normal. The estimated ejection fraction is 55-60%, by visual assessment. Wall motion is normal; there are no regional wall motion abnormalities. - Right ventricle: The cavity size is normal. Systolic function is normal. - Ventricular septum: Ventricular septal wall motion has a postoperative appearance. - Left atrium: The atrium is mildly dilated. - Pulmonary arteries: Systolic pressure can not be accurately estimated. - No functionally significant valvular abnormalities noted. Recommendations: Compared to prior study from 05/2017, no clinically significant changes noted. Study data: Transthoracic echocardiogram. Procedure: Transthoracic echocardiography was performed. Image quality was fair. Intravenous Definity , 2 mlswas administered. Complete 2D, spectral Doppler, and color flow Doppler. Location: Bedside. Patient status: Inpatient. Patient room number: 413 02. Rhythm: Normal sinus rhythm. Findings Left ventricle: The cavity size is at the upper limits of normal. Wall thickness is mildly increased. Systolic function is normal. The estimated ejection fraction is 55-60%, by visual assessment. Wall motion is normal; there are no regional wall motion abnormalities. Left ventricular diastolic function parameters are normal. Right ventricle: The cavity size is normal. Systolic function is normal. Ventricular septum: Ventricular septal wall motion has a postoperative appearance. Left atrium: The atrium is mildly dilated. Right atrium: The atrium is at the upper limits of normal in size. Mitral valve: The leaflets are normal thickness. There is no evidence of stenosis. There is mild regurgitation. Aortic valve: The valve is trileaflet. The leaflets are normal thickness. There is no evidence of stenosis. There is no significant regurgitation. Tricuspid valve: The leaflets are normal thickness. There is no evidence of stenosis. There is mild regurgitation. Pulmonic valve: The leaflets are normal thickness. There is no evidence of stenosis. There is no significant regurgitation. Aorta: The aortic root appears normal. The aortic arch appears normal. Pericardium: There is no significant pericardial effusion. Pulmonary arteries: Systolic pressure can not be accurately estimated. Systemic veins: Inferior vena cava: The vessel is dilated. There is (>= 50%) respiratory change in the IVC dimension. Measurements Left ventricle Value Ref Aortic valve continued Value Ref IRENE, LAX 5.7 cm 4.2 - 5.8 VTI, S 28.8 cm ---- ESD, LAX (H) 4.2 cm 2.5 - 4.0 Mean grad, S 5.0 mm Hg ---- FS, LAX 27 % 25 - 43 Peak grad, S 8.0 mm Hg ---- PW, ED, LAX (H) 1.3 cm 0.6 - 1.0 E', lat cristopher, TDI 10.1 cm/sec >=10.0 Mitral valve Value Re f E/e', lat cristopher, 7 Peak E 0.75 m/sec ---- TDI Peak A 0.79 m/sec ---- E', med cristopher, TDI (L) 5.9 cm/sec >=7.0 Decel time 219 ms -- -- E/e', med cristopher, 13 Peak grad, D 2.2 mm Hg ---- TDI Peak E/A ratio 0.9 ---- E', avg, TDI 8.0 cm/sec E/e', avg, TDI 9 <=14 Pulmonic valve Value Re f Peak v, S 0.96 m/sec ---- LVOT Value Ref Peak grad, S 4.0 mm Hg ---- Peak willie, S 1.03 m/sec Mean grad, S 2 mm Hg Aortic root Value Ref Root diam 3.1 cm <4.4 Ventricular septum Value Ref IVS, ED (H) 1.2 cm 0.6 - 1.0 Ascending aorta Value Ref AAo AP diam, S 3.0 cm ---- Right ventricle Value Ref IRENE, LAX 3.0 cm Aortic arch Value Ref IRENE minor ax, A4C 2.9 cm 1.9 - 3.5 Arch diam 2.7 cm ---- mid Decending aorta Value Ref Left atrium Value Ref Heidy peak willie 0.84 m/sec ---- AP dim, ES (H) 4.60 cm 3.00 - 4.00 Inferior vena cava Value Ref ML dim, A4C 4.3 cm Diam 2.2 cm ---- SI dim, A4C 6.2 cm Vol/bsa, ES, A/L (H) 35 ml/m^2 16 - 34 Pulmonary veins Value Ref Peak v, S 0.41 m/sec ---- Right atrium Value Ref Peak v, D 0.29 m/sec ---- SI dim, ES 5.2 cm 3.4 - 5.3 Peak S/D ratio 1.4 ---- ML dim, ES, A4C 4.1 cm 2.6 - 4.4 A rev duration 135 ms ---- Estimated RAP 8 mm Hg Aortic valve Value Ref Cristopher diam, ED 2.2 cm Peak v, S 1.44 m/sec Legend: (L) and (H) dao values outside specified reference range. Prepared and electronically signed by Zack Rodriguez MD 04/21/2019 17:22
[2019-04-21] MEDS ORDERED: Magnesium CITRATE* 300 ML BTL PO ONE (19:00)
[2019-04-21] MEDS: Clopidogrel TAB* 75 MG PO SCH (20:51)
[2019-04-21] MEDS ORDERED: MAGNESIUM CITRATE PO SCH (21:00)
[2019-04-21] MEDS ORDERED: Atorvastatin* 10 MG TAB PO SCH (21:00)
[2019-04-22] MEDS: HYDROmorphone TAB* 2 MG PO PRN (02:06)
[2019-04-22] MEDS ORDERED: Repaglinide TAB* 1 MG PO SCH (07:30)
[2019-04-22 07:50] VITALS: BP 111/74
[2019-04-22] MEDS: Aspirin EC TAB* 325 MG PO SCH (08:09)
[2019-04-22] MEDS: Cetirizine* 10 MG TAB PO SCH (08:09)
[2019-04-22] MEDS: metFORMIN* 500 MG TAB PO SCH (08:09)
[2019-04-22] MEDS: Metoprolol Succinate XL TAB* 50 MG PO SCH (08:09)
[2019-04-22] MEDS: Morphine TAB Extended Release (*) 15 MG TAB.ER PO SCH (08:09)
[2019-04-22] MEDS: carBAMazepine TAB(*) 200 MG PO SCH (08:09)
[2019-04-22] MEDS: Furosemide TAB* 40 MG PO SCH (08:09)
[2019-04-22] MEDS: Insulin GLARGINE(*) 1 UNITS UNIT SUBCUT SCH (08:11)
[2019-04-22] MEDS: COENZYME Q10 100 MG PO SCH (08:11)
[2019-04-22] MEDS: Mometasone/Formoter 200/5 MDI INH SCH (08:13)
[2019-04-22] MEDS: Fluticasone NASAL SPRAY 50MCG* 16 gm SPRAY BTL BOTH NARES SCH (08:13)
--- NOTE | 2019-04-22 10:16 | DS ---
CC: Dr. Pavithra Galvin; Dr. Smooth Eisenberg * DISCHARGE SUMMARY: DATE OF ADMISSION: 04/20/19 DATE OF DISCHARGE: 04/22/19 HISTORY/HOSPITAL COURSE: This 58-year-old man presented with shortness of breath and fever. He had multiple symptoms for over a week before presenting. He had some rhinorrhea, sore throat. He developed cough, mildly productive at most. His temperature was 101.7 two or three days before admission. His pulse oximeter at home was 85% on his usual oxygen delivery system at home. His girlfriend, whom he lives with had a similar illness recently. The patient clinically was felt to have pneumonia. He was given levofloxacin. He has received 2 doses IV. As he has received 2 days out of 5-day course, he will complete the 5-day course with 3 oral doses, 1 given in the hospital before discharge and 2 to take at home at 24-hour intervals. His other medications are unchanged. He did have an echocardiogram, which showed normal LV function and otherwise no significant abnormalities. He does give a history of congestive heart failure about 10 years ago. FINAL DIAGNOSES: 1. Pneumonia. 2. Chronic obstructive pulmonary disease, on BiPAP. 3. History of heart failure. 4. Diabetes mellitus. 5. Hypertension. 6. Chronic pain syndrome. DISCHARGE MEDICATIONS: 1. Levofloxacin 750 mg daily for 2 days following discharge. 2. Multivitamin 1 daily. 3. Metformin 1000 mg b.i.d. 4. Isosorbide mononitrate 90 mg daily. 5. Clopidogrel 75 mg h.s. 6. Aspirin 325 mg daily. 7. Nitroglycerin 0.4 mg sublingual every 5 minutes p.r.n. 8. Repaglinide 4 mg t.i.d. 9. Furosemide 40 mg Thursday, Thursday, and Thursday. 10. Doxylamine succinate 25 mg h.s. p.r.n. 11. Carbamazepine ER 400 mg t.i.d. 13. Metoprolol succinate 50 mg daily. 14. Ramipril 5 mg h.s. 15. Amlodipine 5 mg b.i.d. 16. Albuterol 108 mcg inhalation b.i.d. 17. Morphine extended-release 15 mg b.i.d. 18. Magnesium citrate 325 mg h.s. 19. Levocetirizine 5 mg daily. 20. Fluticasone 2 sprays both nares twice daily. 21. CoQ10 400 mg daily. 22. Hydromorphone 2 mg 4 times a day. 23. Glargine insulin 65 units daily. 24. Alirocumab 75 mg as prescribed every 14 days subcu. 25. Rosuvastatin 2.5 mg every Thursday and . 26. Metoprolol succinate 25 mg h.s. 27. Budesonide/formoterol 80/4.5 two puffs daily. 28. Albuterol inhaler 1 to 2 puffs every 4 hours p.r.n. 29. Ipratropium 0.5 mg b.i.d. by inhaler as needed. DISCHARGE DISPOSITION: Home. DISCHARGE CONDITION: Improved. [id number]/[facility] #: [id number] MTDD
[2019-04-22] MEDS ORDERED: Levofloxacin TAB* 750 MG PO SCH (11:00)
== END 2019-04-22 11:25 | disposition home or self-care (01) ==
LOC: ED 09:27 → MED 14:23
PROVIDERS: ADMIT Internal Medicine; ATTEND Internal Medicine
DX: J18.9 Pneumonia, unspecified organism (principal); J44.9 Chronic obstructive pulmonary disease, unspecified; I11.0 Hypertensive heart disease with heart failure; I50.9 Heart failure, unspecified; E11.9 Type 2 diabetes mellitus without complications; I25.10 Atherosclerotic heart disease of native coronary artery without angina pectoris; J96.11 Chronic respiratory failure with hypoxia; R50.9 Fever, unspecified; R79.89 Other specified abnormal findings of blood chemistry; G89.4 Chronic pain syndrome; Z79.82 Long term (current) use of aspirin; Z79.899 Other long term (current) drug therapy; Z87.891 Personal history of nicotine dependence; Z79.01 Long term (current) use of anticoagulants; Z23 Encounter for immunization; Z95.5 Presence of coronary angioplasty implant and graft; R06.02 Shortness of breath
CPT/HCPCS: 36415; 71045; 80048; 80053; 81003; 81015; 82550; 82553; 82803; 83605; 83735; 83880; 84484; 85025; 85610; 85730; 86140; 87040; 87899; 90471; 90686; 90750; 93005; 93306; 94640; 94660; 96365; 96366; 96372; 99284; A9270-GY; C8929; G0008; G0378; J1650

== ENCOUNTER 2022-03-28 12:53 | Inpatient (IN) ==
[2022-03-28] MEDS ORDERED: Lactated Ringers 1000 ml BAG 1,000 ML IV ONE ×2 (13:30→14:45)
[2022-03-28 14:14] LABS: ABS Lymphocytes 0.6 10^3/ul (1.0-4.8); ABS Monocytes 0.3 10^3/ul (0-0.8); ABS Neutrophils 5.4 10^3/ul (1.5-7.7); Hematocrit 41 % (42-52); Hemoglobin 13.9 g/dL (14.0-18.0); Lymphocyte % 9.8 %; Mean Corpuscular HGB Conc 34 g/dL (31-36); Mean Corpuscular Hemoglobin 36 pg (27-31); Mean Corpuscular Volume 104 fL (80-94); Mean Platelet Volume 6.9 fL (7.4-10.4); Platelet Count 188 10^3/uL (150-450); Red Blood Count 3.92 10^6 /uL (4.18-5.48); Red Cell Distribution Width 14 % (10-15); White Blood Count 6.4 10^3/uL (3.5-10.8)
[2022-03-28 14:29] LABS: Activated Partial Thrombo Time 28.7 seconds (26.0-38.0); INR 1.1 (0.89-1.11)
[2022-03-28 14:35] LABS: High Sens Troponin Baseline 17 pg/mL (<20)
[2022-03-28 15:07] LABS: TSH Ultra Thyroid Stim Horm 0.67 mcIU/mL (0.34-5.60)
[2022-03-28 15:25] LABS: ALT 20 U/L (7-52); AST 20 U/L (13-39); Albumin 3.7 g/dL (3.2-5.2); Albumin/Globulin Ratio 1.4 (1-3); Alcohol, S < 13 mg/dL (<13); Alkaline Phosphatase 71 U/L (35-149); Anion Gap 8 mmol/L (2-11); Blood Urea Nitrogen 11 mg/dL (6-24); CO2 Carbon Dioxide 26 mmol/L (22-32); Calcium 8.7 mg/dL (8.6-10.3); Chloride 102 mmol/L (101-111); Globulin 2.6 g/dL (2-4); Glucose 154 mg/dL (70-100); Magnesium 1.7 mg/dL (1.9-2.7); Potassium 4.1 mmol/L (3.5-5.0); Sodium 136 mmol/L (135-145); Total Protein 6.3 g/dL (6.4-8.9); eGFR CKD-EPI 64.9 (>60)
[2022-03-28 15:29] LABS: Urine Appearance Clear; Urine Bilirubin Negative (Negative); Urine Blood Negative (Negative); Urine Color Straw; Urine Glucose 3+(>=500 mg/dL) (Negative); Urine Ketones Negative (Negative); Urine Nitrite Negative (Negative); Urine Protein Negative (Negative); Urine Specific Gravity 1.006 (1.002-1.030); Urine Urobilinogen Negative (Negative)
[2022-03-28 15:42] LABS: High Sensitivity Troponin 1 Hr 14 pg/mL (<20)
[2022-03-28] MEDS ORDERED: Magnesium Sulfate 2 gm BAG 2 GM/50 ML BAG IVPB ONE (15:49)
[2022-03-28] MEDS: Enoxaparin 40 MG/0.4 ML SYR SUBCUT SCH (18:37)
[2022-03-28] MEDS ORDERED: Albuterol HFA INHALER 8 gm MDI INH PRN (19:29)
[2022-03-28] MEDS ORDERED: Dextrose 50% Syringe 50 ml 25 GM/50 ML SYRINGE IV PUSH PRN (19:44)
[2022-03-28] MEDS ORDERED: Insulin GLARGINE 100 un/ml 10 ml VIAL SUBCUT SCH (21:00)
[2022-03-28] MEDS: Mometasone/Formoter 200/5 MDI INH SCH (22:17)
[2022-03-28] MEDS: SPIRIVA Respimat (tiotropium) 2.5 mcg/inh Inhaler INH SCH (22:20)
[2022-03-29] MEDS: Acetaminophen IV 1 GM/100ML 1,000 MG/100 ML BAG IV PRN ×2 (00:07→13:35)
[2022-03-29 06:14] LABS: ABS Lymphocytes 1.1 10^3/ul (1.0-4.8); ABS Monocytes 0.3 10^3/ul (0-0.8); ABS Neutrophils 1.6 10^3/ul (1.5-7.7); Eosinophil % 0.2 %; Hematocrit 39 % (42-52); Hemoglobin 13.4 g/dL (14.0-18.0); Lymphocyte % 35.6 %; Mean Corpuscular HGB Conc 35 g/dL (31-36); Mean Corpuscular Hemoglobin 36 pg (27-31); Mean Corpuscular Volume 104 fL (80-94); Nucleated Red Blood Cells % 0.1; Platelet Count 183 10^3/uL (150-450); Red Blood Count 3.72 10^6 /uL (4.18-5.48); Red Cell Distribution Width 14 % (10-15); White Blood Count 3.1 10^3/uL (3.5-10.8)
[2022-03-29] MEDS: Nystatin TOP POWDER 15 GM BTL TOPICAL SCH ×4 (06:15→21:07)
[2022-03-29 06:42] LABS: Calcium 8.5 mg/dL (8.6-10.3); Potassium 3.8 mmol/L (3.5-5.0); eGFR CKD-EPI 68.1 (>60)
[2022-03-29] MEDS: NS 0.9% 1000 ml BAG 1,000 ML IV SCH ×2 (07:40→20:40)
[2022-03-29] MEDS ORDERED: Influenza vaccine *QUAD* *2022-23* 0.5 ML SYRINGE IM ONE (09:00)
[2022-03-29] MEDS: Insulin GLARGINE 100 un/ml 10 ml VIAL SUBCUT SCH (10:28)
[2022-03-29] MEDS: Aspirin EC 325 mg TAB.EC PO SCH (10:29)
[2022-03-29] MEDS: Isosorbide Mononit ER 30mg TAB PO SCH (10:30)
[2022-03-29] MEDS: Mometasone/Formoter 200/5 MDI INH SCH ×2 (12:48→20:45)
[2022-03-29] MEDS: Polyethylene Glycol 3350 17 GM PACKET PO SCH ×2 (13:35→20:36)
[2022-03-29] MEDS: Enoxaparin 40 MG/0.4 ML SYR SUBCUT SCH (16:45)
[2022-03-29] MEDS: Morphine ER 15 mg TAB ** extended release PO PRN (20:32)
[2022-03-29] MEDS: SPIRIVA Respimat (tiotropium) 2.5 mcg/inh Inhaler INH SCH (20:45)
[2022-03-30] MEDS: Mometasone/Formoter 200/5 MDI INH SCH ×2 (07:13→21:03)
[2022-03-30] MEDS: NS 0.9% 1000 ml BAG 1,000 ML IV SCH (07:30)
[2022-03-30] MEDS: Polyethylene Glycol 3350 17 GM PACKET PO SCH ×3 (07:44→21:31)
[2022-03-30] MEDS: Isosorbide Mononit ER 30mg TAB PO SCH (07:45)
[2022-03-30] MEDS: Aspirin EC 325 mg TAB.EC PO SCH (07:46)
[2022-03-30] MEDS: Morphine ER 15 mg TAB ** extended release PO PRN ×2 (07:46→21:24)
[2022-03-30] MEDS: Insulin GLARGINE 100 un/ml 10 ml VIAL SUBCUT SCH (07:48)
[2022-03-30] MEDS: Nystatin TOP POWDER 15 GM BTL TOPICAL SCH ×3 (07:50→21:33)
[2022-03-30 08:56] LABS: Calcium 8.1 mg/dL (8.6-10.3); Magnesium 1.7 mg/dL (1.9-2.7); Potassium 4.3 mmol/L (3.5-5.0); eGFR CKD-EPI 94.6 (>60)
[2022-03-30] MEDS: Enoxaparin 40 MG/0.4 ML SYR SUBCUT SCH (17:01)
[2022-03-30] MEDS: SPIRIVA Respimat (tiotropium) 2.5 mcg/inh Inhaler INH SCH (21:04)
[2022-03-30] MEDS: Chlorhexidine MOUTHWASH 0.12% 15 ML UDC SWISH SPIT SCH (21:23)
[2022-03-31 06:46] LABS: Hematocrit 39 % (42-52); Hemoglobin 13.6 g/dL (14.0-18.0); Mean Corpuscular HGB Conc 35 g/dL (31-36); Mean Corpuscular Hemoglobin 36 pg (27-31); Mean Corpuscular Volume 102 fL (80-94); Mean Platelet Volume 7.4 fL (7.4-10.4); Platelet Count 172 10^3/uL (150-450); Red Cell Distribution Width 14 % (10-15); White Blood Count 3.6 10^3/uL (3.5-10.8)
[2022-03-31 06:48] LABS: Albumin 3.4 g/dL (3.2-5.2); Albumin/Globulin Ratio 1.2 (1-3); Calcium 8.6 mg/dL (8.6-10.3); Globulin 2.8 g/dL (2-4); Potassium 4.7 mmol/L (3.5-5.0); Total Bilirubin 0.3 mg/dL (0.2-1.0); Total Protein 6.2 g/dL (6.4-8.9); eGFR CKD-EPI 98.5 (>60)
[2022-03-31 07:17] LABS: ABS Eosinophils 0.1 10^3/ul (0-0.6); ABS Lymphocytes 1.7 10^3/ul (1.0-4.8); ABS Monocytes 0.4 10^3/ul (0-0.8); ABS Neutrophils 1.4 10^3/ul (1.5-7.7); Eosinophil % 2.1 %; Lymphocyte % 46.9 %; Nucleated Red Blood Cells % 0.1
[2022-03-31 07:21] LABS: Macrocytosis 1+
[2022-03-31] MEDS: Polyethylene Glycol 3350 17 GM PACKET PO SCH (07:42)
[2022-03-31] MEDS: Isosorbide Mononit ER 30mg TAB PO SCH (07:43)
[2022-03-31] MEDS: Aspirin EC 325 mg TAB.EC PO SCH (07:44)
[2022-03-31] MEDS: Chlorhexidine MOUTHWASH 0.12% 15 ML UDC SWISH SPIT SCH ×2 (07:45→13:37)
[2022-03-31] MEDS: Nystatin TOP POWDER 15 GM BTL TOPICAL SCH ×2 (07:46→13:38)
[2022-03-31] MEDS: Mometasone/Formoter 200/5 MDI INH SCH (08:31)
[2022-03-31] MEDS ORDERED: Insulin GLARGINE 100 un/ml 10 ml VIAL SUBCUT SCH (09:00)
[2022-03-31] MEDS: Morphine ER 15 mg TAB ** extended release PO PRN (09:54)
[2022-03-31] MEDS ORDERED: Sulfur Hexaflouride MICROSPHR 25 MG VIAL ONE (14:32)
[2022-03-31 15:34] VITALS: BP 109/63
[2022-03-31] MEDS: Enoxaparin 40 MG/0.4 ML SYR SUBCUT SCH (16:09)
== END 2022-03-31 18:15 | disposition home or self-care (01) | DRG 683 ==
LOC: ED 12:53 → SUATTDRO 16:25 → EDHOLD 16:25 → MEDTELE 21:10
PROVIDERS: ADMIT Internal Medicine; ATTEND Internal Medicine